=== PATIENT | male | born 1955 | race Caucasian/White ===

== ENCOUNTER 2017-03-19 09:33 | Emergency (ER) | payer BC, OTHER ==
--- NOTE | 2017-03-19 09:49 | Emergency Department Record ---
History of Present Illness - General Chief complaint: Extremity Problem Stated complaint: L ARM PAIN Time Seen by Provider: 03/19/17 09:36 Source: Patient Mode of Arrival: Ambulatory Limitations: No limitations - History of Present Illness Initial comments: 61 yo male presents with pain and swelling of the left elbow and forearm for about 3 weeks. He is active and reports the pain soon after lifting a lot of "junk". He has noted swelling of the proximal forearm muscles as well. No redness. No fever. No weakness. He has pain with lifting. NO history of DVT. He did tear a biceps tendon on the right side that required surgery in the past. No PCP MD Complaint: Extremity pain, Extremity swelling, Joint pain -: Week(s) (3) Location: Left, Elbow History of Same: No -: Yes Arthralgia Radiation: Distal Quality: Aching Consistency: Constant Improves with: Immobilization Worsens with: Exertion, Palpation, Weight bearing Associated Symptoms: Denies other symptoms - Related Data Previous Rx's Medication Instructions Recorded Methylprednisolone [Medrol Dose 4 mg PO DAILY #1 tab.ds.pk 03/19/17 Pack] Allergies Allergy/AdvReac Type Severity Reaction Status Date / Time No Known Drug Allergies Allergy Verified 03/19/17 09:42 Review of Systems Constitutional: Denies: Chills, Fever, Malaise, Weakness Eyes: Denies: Eye discharge ENT: Denies: Congestion, Throat pain Respiratory: Denies: Cough, Dyspnea, Hemoptysis Cardiovascular: Denies: Chest pain, Palpitations, Syncope Endocrine: Denies: Fatigue, Polydipsia, Polyuria Gastrointestinal: Denies: Abdominal pain, Diarrhea, Nausea, Vomiting Genitourinary: Denies: Dysuria, Frequency, Hematuria Musculoskeletal: Reports: As per HPI, Arthralgia, Joint swelling, Myalgia Skin: Denies: Bruising, Change in color, Rash Neurological: Denies: Headache, Numbness, Weakness Psychiatric: Denies: Anxiety Hematological/Lymphatic: Denies: Blood Clots, Easy bleeding, Easy bruising, Swollen glands Physical Exam - General General Appearance: Alert, Oriented x3, Cooperative, No acute distress Limitations: No limitations - Head Head exam: Atraumatic, Normal inspection - Eye Eye exam: Normal appearance, PERRL. negative: Conjunctival injection, Periorbital swelling - ENT ENT exam: Normal exam, Mucous membranes moist Ear exam: Normal external inspection Nasal Exam: Normal inspection Mouth exam: Normal external inspection Teeth exam: Normal inspection - Neck Neck exam: Normal inspection, Full ROM. negative: Tenderness - Respiratory Respiratory exam: Normal lung sounds bilaterally. negative: Respiratory distress - Cardiovascular Cardiovascular Exam: Regular rate, Normal rhythm, Normal heart sounds Peripheral Pulses: 2+: Radial (R), Radial (L) - Rectal Rectal exam: Deferred - exam: Deferred - Extremities Extremities exam: Full ROM, Joint swelling, Normal capillary refill, Tenderness. negative: Calf tenderness - Back Back exam: Reports: Normal inspection, Full ROM. Denies: Muscle spasm, Rash noted, Tenderness Image of Body Front/Back: 1 - tenderness to the medial and lateral elbow and proximal forearm muscles, soft, no warmth or redness, no olecrenon swelling or tenderness, mild STS compared to the right. - Neurological Neurological exam: Alert, Normal gait, Oriented X3 - Psychiatric Psychiatric exam: Normal affect, Normal mood - Skin Skin exam: Dry, Intact, Normal color, Warm Course Vital Signs 03/19/17 09:40 Temperature 97.7 F Pulse Rate [ 52 L Pulse Ox Probe] Respiratory 16 Rate Blood Pressure 152/84 [Right Arm] Pulse Ox 99 - Reevaluation(s) Reevaluation #1: XR and Venous doppler ordered 03/19/17 09:49 Reevaluation #2: The XR was read as no acute process The US demonstrated a 3 cm anechoic area that could represent biceps/radial tendonitis He will be referred to the [facility] specialty clinic He was advised on no lifting and given an Rx for Medrol Dose pack. 03/19/17 11:24 Disposition Disposition: Discharge Clinical Impression: Biceps tendinitis Qualifiers: Laterality: left Qualified Code(s): M75.22 - Bicipital tendinitis, left shoulder Disposition: Home, Self-Care Condition: (1) Good Instructions: Tendinitis (ED) Additional Instructions: Call the numbers provided for follow up for a Family Doctor and an orthopedic referral Use the sling for support and comfort with frequent range of motion to prevent stiffness No lifting with the left Prescriptions: Methylprednisolone [Medrol Dose Pack] 4 mg PO DAILY #1 tab.ds.pk Referrals: ZENA GACRIA M.D. [MEDICAL DOCTOR] - ALVINO WALKER [DOCTOR OF OSTEOPATH] - [facility] [Provider Group] Forms: Patient Portal Access Time of Disposition: 11:21 Quality - Quality Measures Quality Measures: N/A - Blood Pressure Screening Does Patient Have Any of the Following: No Blood Pressure Classification: Pre-Hypertensive BP Reading Systolic Measurement: 152 Diastolic Measurement: 84 Screening for High Blood Pressure: < Pre-Hypertensive BP, F/U Documented > [ [id number]] Pre-Hypertensive Follow-up Interventions: Referral to alternative/primary care provider.
--- NOTE | 2017-03-20 09:18 | RADIOLOGY REPORT ---
EXAM: LEFT ELBOW, FOUR VIEWS HISTORY: LEFT ELBOW INJURY AND PAIN FOR THREE WEEKS. TECHNIQUE: Four views of the left elbow were obtained. Comparison: None. Encounter: Initial. FINDINGS: No bone or joint abnormality. IMPRESSION: NEGATIVE LEFT ELBOW EXAMINATION. JOB NUMBER: [id number] MTDD
--- NOTE | 2017-03-20 09:23 | US VENOUS DOPPLER REPORT ---
EXAM: LEFT UPPER EXTREMITY VENOUS DOPPLER ULTRASOUND HISTORY: LEFT ARM PAIN AND SWELLING FOR THREE WEEKS. TECHNIQUE: Real-time boyd scale sonographic imaging of the left upper extremity deep venous system was performed with Duplex Doppler and spectral analysis. Comparison: Left elbow radiograph 03/19/17. FINDINGS: There is normal color flow and compressibility in the following vessels: Left internal jugular vein, left subclavian vein, left axillary vein, left brachial veins, left basilic vein, left cephalic vein, left radial veins, and left ulnar veins. Spectral analysis demonstrates normal venous waveforms in the left upper extremity venous system. Incidental note is made of an anechoic fluid collection with no color flow in the left antecubital fossa measuring approximately 3.5 x 2.2 x 2.2 cm which is nonspecific although could relate to bicipital radial bursitis. IMPRESSION: 1. NEGATIVE FOR DEEP VENOUS THROMBOSIS OF THE LEFT UPPER EXTREMITY. 2. ANECHOIC FLUID COLLECTION IN THE ANTECUBITAL FOSSA WHICH IS NONSPECIFIC ALTHOUGH COULD REFLECT BICIPITAL RADIAL BURSITIS. JOB NUMBER: [id number] MTDD
== END 2017-03-19 11:49 | disposition home or self-care (01) ==
LOC: ER 09:33
DX: M75.22 Bicipital tendinitis, left shoulder (principal); M79.632 Pain in left forearm
CPT/HCPCS: 99283